=== PATIENT | male | born 1985 | race Caucasian/White ===

== ENCOUNTER → 2022-10-20 | Outpatient (CLI) | payer OTHER, SELFPAY ==
--- NOTE | 2022-10-20 13:21 | NEURO ---
NCS and/or EMG Patient Report Ordering Doctor: Nikhil Brown DATE OF SERVICE: 10/20/22 Ayo presents for electrodiagnostic testing of the upper limbs. He reports numbness and tingling in both hands, worse on the left side. Electrodiagnostic findings: Left median motor nerve demonstrates prolonged distal latency with normal amplitude and reduced conduction velocity. Right median motor nerve demonstrates prolonged distal latency with normal amplitude and reduced conduction velocity. Ulnar motor response is within normal limits bilaterally. Prolonged left median F wave. Prolonged median sensory latency at the wrist, more so on the left side. Prolonged median palmar latency bilaterally. Normal ulnar and radial sensory responses. Needle EMG testing reveals no evidence of denervation in any muscles tested in the upper limbs. Motor unit action potentials of normal amplitude and duration. Electrodiagnostic impression: This is an abnormal study in the upper limbs 1. Electrodiagnostic findings suggestive of bilateral median mononeuropathy. This is consistent with a moderate right carpal tunnel syndrome and a severe left carpal tunnel syndrome. 2. No electrodiagnostic evidence is noted for cervical radiculopathy.
== END | disposition home or self-care (01) ==
LOC: PSN 12:04
PROVIDERS: PCP Student in an Organized Health Care Education/Training Program; Referring Provider Student in an Organized Health Care Education/Training Program; Visit Provider Student in an Organized Health Care Education/Training Program
DX: M25.512 Pain in left shoulder (principal); M79.642 Pain in left hand; G56.02 Carpal tunnel syndrome, left upper limb
CPT/HCPCS: 95886; 95913

== ENCOUNTER → 2023-05-07 | Outpatient (CLI) | payer OTHER, SELFPAY ==
--- NOTE | 2023-05-07 07:40 | CT_ITS ---
INDICATION: Gross hematuria EXAMINATION: CT ABDOMEN AND PELVIS WITHOUT CONTRAST - CT Abdomen And Pelvis W/O Contrast Injection TECHNIQUE: Helically acquired images were obtained of the abdomen and pelvis without oral or IV contrast. A radiation dose optimization technique was used for this scan. IV Contrast dosage and agent: None. Oral contrast: None. RADIATION DOSAGE (If Supplied By Facility): CTDIvol = ( 17.86 ) mGy, DLP = ( 990.59 ) mGycm COMPARISON: No relevant prior comparison study available FINDINGS: LOWER CHEST: Lung bases are clear. No cardiomegaly or pericardial effusion. The lack of intravenous contrast limits evaluation of solid visceral organs. LIVER: Homogeneous. No focal mass. GALLBLADDER AND BILIARY TREE: No calcified gallstones. No gallbladder distension or wall edema. No intra- or extrahepatic biliary ductal dilation. PANCREAS: No focal cystic or solid mass. SPLEEN: Normal size without focal cystic or solid mass. ADRENAL GLANDS: No nodules. KIDNEYS AND URETERS: Normal renal size and position. No hydronephrosis. PERITONEUM: No ascites or free air. No other fluid collection. BOWEL: No evidence of acute appendicitis. No stomach or bowel distension. There are diverticula arising from the colon. No focal inflammatory change. LYMPH NODES: No enlarged mesenteric or retroperitoneal lymph nodes. VESSELS: Aorta is non-dilated. URINARY BLADDER: Unremarkable. REPRODUCTIVE ORGANS: No pelvic masses. ABDOMINAL WALL: No discrete abdominal or pelvic wall hernia. BONES: No lytic or blastic abnormality. CT/Abdomen/Pelvis without Cont IMPRESSION: No acute intra-abdominal process. Colonic diverticulosis. Electronically Signed: Rosetta Mcguire MD at 8:53 EDT ,
== END | disposition home or self-care (01) ==
LOC: CT 07:39
PROVIDERS: PCP Student in an Organized Health Care Education/Training Program; Referring Provider Urology; Visit Provider Urology
DX: R31.0 Gross hematuria (principal)
CPT/HCPCS: 74176

== ENCOUNTER → 2024-05-28 | Outpatient (CLI) | payer OTHER, SELFPAY ==
--- NOTE | 2024-05-28 11:52 | RAD_ITS ---
STUDY: X-RAY - LEFT SHOULDER REASON FOR EXAM: Male, 39 years old. STRAIN OF MUSC/TEND TECHNIQUE: 4 view(s) of the shoulder. COMPARISON: None. FINDINGS: Normal glenohumeral articulation. Normal acromioclavicular joint. Normal acromion. Normal humeral head and visualized proximal humerus. The soft tissue structures are unremarkable. Normal visualized pulmonary apex. RAD/Shoulder min 2 Views IMPRESSION: Normal x-ray examination of the shoulder. Electronically Signed: Matt Morris MD at 15:44 EST ,
== END | disposition home or self-care (01) ==
LOC: RAD 11:46
PROVIDERS: PCP Student in an Organized Health Care Education/Training Program; Referring Provider Student in an Organized Health Care Education/Training Program; Visit Provider Student in an Organized Health Care Education/Training Program
DX: S46.012A Strain of muscle(s) and tendon(s) of the rotator cuff of left shoulder, initial encounter (principal); X58.XXXA Exposure to other specified factors, initial encounter
CPT/HCPCS: 73030

== ENCOUNTER → 2024-07-09 | Outpatient (CLI) | payer OTHER, SELFPAY ==
--- NOTE | 2024-07-09 07:28 | MRI_ITS ---
STUDY: MRI LEFT SHOULDER REASON FOR EXAM: Male, 39 years old. LEFT SHOULDER PAIN, STRAIN OF RC TECHNIQUE: Standardized fat and water weighted pulse sequences were obtained in all 3 orthogonal planes. COMPARISON: Left shoulder radiographs dated 05/28/2024. FINDINGS: There is supraspinatus tendinosis without a full-thickness tear (coronal T2 series 5 images 13-15). Normal infraspinatus tendon. There is subscapularis tendinosis. Normal teres minor tendon. Normal supraspinatus muscle. Normal infraspinatus muscle. Normal subscapularis muscle. Normal teres minor muscle. Normal glenohumeral articulation. Normal humeral head and visualized proximal humerus. Normal biceps labral complex. Normal intracapsular long biceps tendon. Normal labrum. Normal capsulo-ligamentous complex. Normal rotator interval. There is mild hypertrophic acromioclavicular arthrosis. There is a Type II morphology (curved), with a neutral orientation. There is no subacromial-subdeltoid bursal fluid. Normal visualized coracohumeral and coracoacromial ligaments. Normal quadrilateral space. Normal axillary space. Normal deltoid muscle. Normal trapezius muscle. MRI/Upper Ext Joint Only(Routine) IMPRESSION: Supraspinatus and subscapularis tendinosis without a full-thickness rotator cuff tear. Mild hypertrophic acromioclavicular arthrosis. Electronically Signed: Jim Haddad MD at 8:45 EST ,
== END | disposition home or self-care (01) ==
LOC: MRI 07:15
PROVIDERS: PCP Student in an Organized Health Care Education/Training Program; Referring Provider Student in an Organized Health Care Education/Training Program; Visit Provider Student in an Organized Health Care Education/Training Program
DX: S46.012A Strain of muscle(s) and tendon(s) of the rotator cuff of left shoulder, initial encounter (principal); M25.512 Pain in left shoulder; X58.XXXA Exposure to other specified factors, initial encounter
CPT/HCPCS: 73221

== ENCOUNTER 2024-09-06 08:28 | Day surgery (SDC) | payer OTHER, SELFPAY ==
[2024-09-06] VITALS (9 sets, daily range): BP systolic 121–141; BP diastolic 71–85; PULSE 67–110; RESP 16–18; TEMP 36.2–36.8; O2SAT 93–99; BMI 41.8
--- NOTE | 2024-09-06 09:38 | PRE.ANES_ITS ---
ASA Classification* ASA Classification ASA Classification: 3 (Due to high BMI) Assessment & Plan Anesthesia* Anesthesia Assessment Anesthesia Assessment: Discussed sedation and/or anesthesia options, risks, benefits, and alternatives with patient/parents/legal guardian/POA. Questions invited. The patient/parents/legal guardian/POA seems to understand and agrees to proceed with anesthesia plan. Reviewed the physical assessment, medical history, allergy history and patient home medications list prior to surgery/procedure/anesthetic and documented any changes. Performed airway and anesthesia risk assessments. Anesthesia Type Anesthesia Type: MAC (with backup GA LMA OR ETT explained to patient. Aware and agrees to proceed. ) History Source History Obtained from:: Patient and Chart Anesthesia Focused Assessment* Temperature: 98.2 F Pulse Rate: 67 Blood Pressure: 121/71 Respiratory Rate: 17 Pulse Ox: 99 Oxygen Delivery Method: Room Air Airway Assessment Mouth opens: >3 cm Mallampati Score: II Teeth Condition: Intact and Caps/Crowns (left back molar) Neck Range of motion (ROM): Full ROM Comment: Full soriano Focused Labs Anesthesia Preop lab: CBC CHEMISTRY COAG Pre-Assessment Diagnosis/Proposed Procedure Planned Operative Procedure(s): BILAT ENDOSCOPIC CARPAL TUNNEL RELEASE Anesthesia History Anesthesia History - senior engineering technician: Anesthesia History - senior engineering technician Hx Hospitalization No 08/27/24 10:19 Any Problems With Anesthesia No 08/27/24 10:19 Cholinesterase deficiency No 08/27/24 10:19 You/Your Family Experience No 08/27/24 10:19 fever (hyperthermia) with Relationship Recent Exposure to Contagious No 09/06/24 09:08 Disease Does patient have nerve No 08/27/24 10:19 stimulator Patient instructed to have device shut off --Does patient have Pacemaker No 09/06/24 09:08 or ICD? When Was Last Pacemaker Check QUESTION #4 FULL TEXT: You/Your Family Experience fever (hyperthermia) with Anesthesia Last Oral Intake Last Oral intake: Last Oral Intake NPO since 06:35 09/06/24 09:08 Meds taken in AM with sips of No 09/06/24 09:08 water? Meds patient instructed to take am of surgery PONV PONV - senior engineering technician: PONV - senior engineering technician Female No 08/27/24 10:19 HX of Motion Sickness No 08/27/24 10:19 HX of N/V After Surgery No 08/27/24 10:19 Non-Smoker Yes 08/27/24 10:19 Duration of Surgery greater Yes 08/27/24 10:19 than 60 minutes Number of Risk Factors 2 08/27/24 10:19 PONV Score Moderate Risk 08/27/24 10:19 Height & Weight Height & Weight: Anesthesia: Height & Weight Height 5 ft 8 in 09/06/24 09:08 Weight: 125 kg 09/06/24 09:08 Body Mass Index (BMI) 41.8 09/06/24 09:08 Respiratory Assessment Respiratory Assessment - senior engineering technician: Respiratory Tract Infection Hx - senior engineering technician Hx Respiratory Tract Infection No 08/27/24 10:19 STOP Sleep Apnea STOP Sleep Apnea - senior engineering technician: STOP Sleep Apnea - senior engineering technician Hx Hypertension No 08/27/24 10:19 Hx Sleep Apnea No 08/27/24 10:19 CPAP BIPAP Do you snore loudly (louder Yes 08/27/24 10:19 than talking or can be heard Do you often feel tired/ No 08/27/24 10:19 fatigued/ sleepy during daytime? Has anyone observed you stop No 08/27/24 10:19 breathing during sleep? STOP Results Negative 08/27/24 10:19 QUESTION #5 FULL TEXT : Do you snore loudly (louder than talking or can be heard through closed doors)? Tobacco Use History Tobacco Use History - senior engineering technician: Tobacco Use History - senior engineering technician Tobacco Use Smoking Status Never smoker 08/27/24 10:19 Hx Tobacco Use No 08/27/24 10:19 Years Smoking Packs Smoked per Day Smoking Cessation Date was within the last 15 years Hx Smoking Cessation Date Hx Smoking Cessation Counseling Hematologic Medial History Hematologic Hx - senior engineering technician: Hematologic Medical Hx - junior legal secretary Hx of Blood Transfusion No 08/27/24 10:19 Hx of Transfusion in last 3 No 08/27/24 10:19 Months Date of Last Transfusion (if within last 3 months) Ever experience any problems No 08/27/24 10:19 with transfusion(s)? Specify any problems Hx of Preganancy in last 3 N/A 08/27/24 10:19 Months Nurse Filling Out Transfusion DSCHRIBER 08/27/24 10:19 & Questions: Date: 08/27/24 08/27/24 10:19 Time: 10:21 08/27/24 10:19 Patient unable to answer at this time (ie. confused, unrespo /Reproduction History /Reproductive History - senior engineering technician: /Reproductive Hx- senior engineering technician Hx Now No 08/27/24 10:19 Gestational Age (in weeks): EDC: Hx Hx Para Hx Section SAB No 08/27/24 10:19 Active Medications Active Medications: Current Medications Generic Name Dose Route Start Last Admin Trade Name Freq PRN Reason Stop Dose Admin Cefazolin Sodium 3 gm/ N/A 30 mls @ 600 mls/hr 09/06/24 10:10 IV 09/06/24 10:12 PREOP ONE [facility] Medical History Wears glasses Gastric reflux Non-smoker Home Medications ?Medication ?Instructions ?Recorded ?Last Taken ?Type meloxicam 15 mg tablet 15 mg PO DAILY PRN pain (sca le 08/27/24 09/04/24 History score 1-3) omeprazole 40 mg capsule,delayed 40 mg PO DAILY 09/06/24 History release Allergy/AdvReac Type Severity Reaction Status Date / Time No Known Allergies Allergy Verified 09/06/24 09:07 Surgical History History of root canal procedure Hx of wisdom tooth extraction Hx of eye surgery Hx of eye surgery Social History Smoking Status: Never smoker Review of Systems (Anesthesia) ROS Narrative System reviewed and no additional complaints, except as documented.
[2024-09-06] MEDS: Cefazolin 3 GM in Syringe 1 EACH IV (10:00)
[2024-09-06] MEDS: Lidocaine 1% /Epi 1:100 (20ml) 20 ML Vial (10:20)
--- NOTE | 2024-09-06 10:39 | PCM.POST.ANE ---
Anesthesia: Postop Eval I Current Vital Signs Temperature: 97.1 F Pulse Rate: 106 Blood Pressure: 124/85 Respiratory Rate: 18 Pulse Ox: 93 Assessment Airway patent: Yes Spontaneous unlabored respirations: Yes nausea: No Vomiting: No Anesthesia Complication: No Fluid Hydration Crystalloid volume administer (ml): 0 Total IV fluid infused: 0 Progress Note Anesthesia document: Postop Eval 1 completed: Yes
--- NOTE | 2024-09-06 11:03 | OP.PCM_ITS ---
Operative Report (Standard) Operative Information Date of Procedure: 09/06/24 Pre-Operative Diagnosis: Bilateral carpal tunnel syndrome Post-Operative Diagnosis: Bilateral carpal tunnel syndrome Surgery/Procedure Performed: Bilateral endoscopic carpal tunnel release sales donor recruitment representative: No Type of Anesthesia: Local MAC RN Documented Start/Stop Times: Operation Date: 09/06/24 10:10 Case Time Into Pre-Op 09/06/24 08:49 Anesthesia Start 09/06/24 09:55 Into Room 09/06/24 09:55 Out of Pre-Op 09/06/24 09:55 Procedure Start 09/06/24 10:17 Procedure End 09/06/24 10:32 Anesthesia End 09/06/24 10:36 Out of Room 09/06/24 10:36 Into Recovery 09/06/24 10:38 Into Phase II Recovery 09/06/24 11:03 Out of Recovery 09/06/24 11:03 Procedure Start Time: 10:17 Procedure Stop Time: 10:32 Select all DRAINS/GRAFTS/IMPLANTS that apply: None Estimated Blood Loss: 2 cc Specimen collected: No Description of surgery: Patient was seen in preoperative holding area. Patient was identified by name, medical record number, date of . The operative extremities were marked with a surgical marker. We confirmed informed consent with the patient and all questions were answered to the patient's satisfaction. At time of his procedure, patient was brought to the operative suite and positioned supine a standard operating table. All bony prominences were well- padded. Gentle MAC anesthesia was induced. Bilateral upper extremities were then prepped for surgery by first applying a well-padded pneumatic tourniquet to the upper arms. We spun the bed approximately 45 degrees. 3 g Ancef was administered prior to incision by anesthesia staff. Tumescent field blocks were administered with 10 cc in each and of 0.5% plain ropivacaine. We then prepped and draped bilateral upper extremities. We performed a timeout at this point confirming side, site, and operation to be performed. No concerns voiced and elected to proceed. I began surgery on the left side, as this was the more symptomatic side. Hand was exsanguinated and tourniquet was inflated to 250 mmHg. I first marked a transverse incision on the ulnar aspect of the palmaris longus tendon in the proximal wrist crease approximately 1 cm in length. Skin was sharply incised with 15 blade scalpel. Superficial veins were cauterized with bipolar cautery. The fatty layer was dissected through bluntly until the antebrachial fascia was encountered. The antebrachial fascia were split in line with the fibers as well as the incision with the Littler scissors. I then placed a skin hook around the antebrachial fascia distally. I open the proximal 1 cm longitudinally of the antebrachial fascia. I then sequentially dilated within the carpal tunnel utilizing Arthrex supplied dilators. I then utilized there synovial elevator to debride the undersurface of the transverse carpal ligament free from synovium. I then removed the elevator and inserted the centerline endoscopic carpal tunnel release system. The transverse carpal ligament was well visualized and free from underlying synovium. I identified its distal aspect by blotting the skin and perivascular fat was visualized. I then carefully deployed the scalpel from the sheath and, in retrograde fashion, sequentially released the transverse carpal ligament longitudinally. No aberrancies of the median nerve were apparent. Complete release was confirmed with Littler scissors acting as a probe. The tourniquet was then deflated. Hemostasis was excellent. Skin was closed with interrupted horizontal mattress suture of 4-0 nylon suture. Sterile compression dressing was then applied. I then turned my attention to the right side. Hand was exsanguinated and tourniquet inflated to 250 mmHg. I then marked a transverse incision on the ulnar aspect of the palmaris longus tendon in the proximal wrist crease approximately 1 cm in length. Skin was sharply incised with 15 blade scalpel. Superficial veins were cauterized with bipolar cautery. The fatty layer was dissected through bluntly until the antebrachial fascia was encountered. The antebrachial fascia were split in line with the fibers as well as the incision with the Littler scissors. I then placed a skin hook around the antebrachial fascia distally. I opened the proximal 1 cm longitudinally of the antebrachial fascia. I then sequentially dilated within the carpal tunnel utilizing Arthrex supplied dilators. I then utilized there synovial elevator to debride the undersurface of the transverse carpal ligament free from synovium. I then removed the elevator and inserted the centerline endoscopic carpal tunnel release system. The transverse carpal ligament was well visualized and free from underlying synovium. I identified its distal aspect by blotting the skin and perivascular fat was visualized. I then carefully deployed the scalpel from the sheath and, in retrograde fashion, sequentially released the transverse carpal ligament longitudinally. No aberrancies of the median nerve were apparent. Complete release was confirmed with Littler scissors acting as a probe. The tourniquet was then deflated. Hemostasis was excellent. Skin was closed with interrupted horizontal mattress suture of 4-0 nylon suture. Sterile compression dressing was then applied. Patient tolerated procedure well without apparent complication. Patient was awakened from anesthesia. Patient was transferred to PACU in stable condition. Intraoperative medications: Post Operative Plan: Weightbearing: Weightbearing as tolerated bilateral upper extremities Antibiotics: Ancef 3 g x 1 dose preoperatively DVT Prophylaxis: None indicated Fallon: None Dressing: Okay to remove on postoperative day #2, shower. Apply Band-Aid X-Rays: None Pain Medication: [facility] provided Follow-up: 2 weeks post-operatively with me in the office Surgical Findings: Complete release of transverse carpal ligament bilaterally. No aberrancies of the median nerve identified. Complications Complications: No Admit VTE Documentation VTE Present on Admission: No VTE Mechan Device Prophylaxis: SCD's VTE Pharm Prophylaxis ordered?: No Reason prophylaxis not ordered: Treatment Not Indicated
--- NOTE | 2024-09-06 12:50 | POSTOPAN2_ITS ---
Anesthesia Postop Eval I Sum Postop Eval Completion status Anesthesia document: Postop Eval 1 completed: Yes Anesthesia Postop Eval I Summary Anesthesia Postop Eval I Summary: Anesthesia Postop Eval I: Assessment Summary Airway patent Yes 09/06/24 10:39 SENIOR LICENSING MANAGER.[email or web address] Spontaneous unlabored Yes 09/06/24 10:39 SENIOR LICENSING MANAGER.CSIR respirations Mental status nausea No 09/06/24 10:39 SENIOR LICENSING MANAGER.CSIR Vomiting No 09/06/24 10:39 SENIOR LICENSING MANAGER.CSIR Anesthesia Postop Eval I: Fluid Summary Crystalloid volume administer 0 09/06/24 10:39 SENIOR LICENSING MANAGER.CSIR (ml) Colloids volume administered ( ml) Blood Product volume administered (ml) Total IV fluid infused 0 09/06/24 10:39 SENIOR LICENSING MANAGER.CSIR Anesthesia Postop Eval I: Summary Notes Anesthesia Complication No 09/06/24 10:39 SENIOR LICENSING MANAGER.CSIR Anesthesia Complication Comment: Post-operative progress note Anesthesia: Postop Eval II Evaluation Mental status: Awake and Calm Pain Level: 0 nausea: No Vomiting: No Complications Anesthesia Complication: No
--- NOTE | 2024-09-06 12:50 | PCM.POSTANE2 ---
Anesthesia Postop Eval I Sum Postop Eval Completion status Anesthesia document: Postop Eval 1 completed: Yes Anesthesia Postop Eval I Summary Anesthesia Postop Eval I Summary: Anesthesia Postop Eval I: Assessment Summary Airway patent Yes 09/06/24 10:39 PROTECTION [email or web address] Spontaneous unlabored Yes 09/06/24 10:39 PROTECTION [email or web address] respirations Mental status nausea No 09/06/24 10:39 PROTECTION [email or web address] Vomiting No 09/06/24 10:39 PROTECTION [email or web address] Anesthesia Postop Eval I: Fluid Summary Crystalloid volume administer 0 09/06/24 10:39 PROTECTION [email or web address] (ml) Colloids volume administered ( ml) Blood Product volume administered (ml) Total IV fluid infused 0 09/06/24 10:39 PROTECTION [email or web address] Anesthesia Postop Eval I: Summary Notes Anesthesia Complication No 09/06/24 10:39 PROTECTION [email or web address] Anesthesia Complication Comment: Post-operative progress note Anesthesia: Postop Eval II Evaluation Mental status: Awake and Calm Pain Level: 0 nausea: No Vomiting: No Complications Anesthesia Complication: No
== END 2024-09-06 12:10 | disposition home or self-care (01) ==
LOC: SDC 08:30 → AC 08:30
PROVIDERS: PCP Student in an Organized Health Care Education/Training Program; Referring Provider Student in an Organized Health Care Education/Training Program; Visit Provider Student in an Organized Health Care Education/Training Program
PROC: (CPT 64721; principal; 2024-09-06 09:55)
DX: G56.03 Carpal tunnel syndrome, bilateral upper limbs (principal); Z68.41 Body mass index [BMI] 40.0-44.9, adult; E66.9 Obesity, unspecified; K21.9 Gastro-esophageal reflux disease without esophagitis
CPT/HCPCS: 64721; 01810; J2405

== ENCOUNTER → 2024-10-24 | Outpatient (CLI) | payer OTHER, SELFPAY ==
[2024-10-24 08:34] LABS: Hematocrit 44.6 % (40-54); Hemoglobin 14.8 g/dL (13.0-16.5); Mean Corp Hgb Conc 33.2 g/dL (32-36); Mean Corpuscular Volume 87.5 fL (80-94); Platelet Count 255 K/mm3 (150-450); RBC Distribution Width CV 12.7 % (11.6-14.6); RBC Distribution Width SD 40.7 fl (35.1-43.9); White Blood Count 7.8 K/mm3 (4.4-11.0)
[2024-10-24 09:19] LABS: ALB/GLOB Ratio 1.4 RATIO (0.9-2.4); AST(SGOT) 30 U/L (<=37); Alanine Aminotransfer ALT/SGPT 29 U/L (<=46); Albumin, Serum 4.2 g/dL (3.5-5.0); Alkaline Phosphatase 73 U/L (40-129); Anion Gap 10 (5-15); BUN 18 mg/dL (4-19); BUN/Creat Ratio 16.8 RATIO (10-20); Calcium,Total 9.4 mg/dL (7.6-11.0); Carbon Dioxide 25.2 mmol/L (21.0-32.0); Chloride 104 mmol/L (98-108); Cholesterol 173 mg/dL (<=200); Creatinine, Serum 1.05 mg/dL (0.70-1.20); EST Glomerular Filtration Rate 93 (>60); Globulin 2.9 g/dL (2.2-4.2); Glucose 104 mg/dL (70-99); High Density Lipoprotein 33 mg/dL; Low Density Lipoprotein Calc. 118 mg/dL; PSA,Total - Annual Screen 0.67 ng/mL (0.02-4.00); Potassium 4.2 mmol/L (3.3-5.1); Protein, Total 7.1 g/dL (5.9-8.4); Sodium Level 139 mmol/L (133-145); Total Bilirubin 0.49 mg/dL (0.00-1.30); Triglycerides 112 mg/dL; Very Low Density Lipoprotein 22 mg/dL (5-40); cholesterol:hdl ratio screen 5.23
== END | disposition home or self-care (01) ==
LOC: LAB 08:05
PROVIDERS: PCP Student in an Organized Health Care Education/Training Program; Referring Provider Student in an Organized Health Care Education/Training Program; Visit Provider Student in an Organized Health Care Education/Training Program
DX: Z00.00 Encounter for general adult medical examination without abnormal findings (principal); R36.1 Hematospermia; Z13.1 Encounter for screening for diabetes mellitus; Z12.5 Encounter for screening for malignant neoplasm of prostate
CPT/HCPCS: 36415; 80053; 80061; 84153; 85027; G0103